=== PATIENT | female | born 1995 | race Two or more races ===

== ENCOUNTER 2018-08-17 09:45 | Emergency (ER) | payer MEDICAID ==
[~2018-08-17] VITALS: Ht 170.2 cm; Wt 106.6 kg
[~2018-08-17 09:45] MED LIST: IBUPROFEN600 MG ORAL; TRAMADOL HCL50 MG ORAL
--- NOTE | 2018-08-17 10:24 | Emergency Room Report ---
History of Present Illness General Chief Complaint: Laceration Source: Patient Present Illness HPI Patient presents with complaints of laceration to the base of the right thumb this happened yesterday At approximately 1:00 in the morning it was cut with a glass bottle Denies any foreign body remnants Pain is 2 out of 10 worse with touch or movement Denies any fevers or chills Patient is unknown regarding her last tetanus shot Allergies: Coded Allergies: No Known Allergies (Unverified , 09/13/16) Patient History Past Medical History: see triage record Pertinent Family History: none Last Menstrual Period: last month Now: No Reviewed Nursing Documentation: PMH: Agreed; PSxH: Agreed Nursing Documentation-PMH Past Medical History: No Stated History Review of Systems All Other Systems: negative except mentioned in HPI Physical Exam Vital Signs Date Time Temp Pulse Resp B/P (MAP) Pulse Ox O2 Delivery O2 Flow Rate FiO2 08/17/18 09:47 98.2 84 18 122/84 98 Room Air 98.2 Sp02 EP Interpretation: reviewed, normal General Appearance: well appearing, no apparent distress Head: normocephalic, atraumatic Eyes: bilateral eye PERRL, bilateral eye EOMI ENT: normal pharynx, no angioedema Neck: supple Respiratory: lungs clear Cardiovascular #1: regular rate, rhythm Musculoskeletal: normal inspection - Patient has full approximation of all digits able to flex thumb extend sensory is intact Neurologic: alert, oriented x3, responsive Skin: other - Approximately half centimeter laceration lateral aspect of the base of the right thumb, the Centerpoint of the laceration appears to breakthrough the dermis the 2 edges appear to be fairly superficial Lymphatic: no adenopathy Procedures Laceration/Wound Repair Laceration/Wound Repair : Consent: Verbal Wound Location: upper extremity Wound's Depth, Shape: into muscle Wound Length (cm): 1 Wound Explored: clean Irrigated w/ Saline (ccs): 100 Betadine Prep?: No Volume Anesthetic (ccs): 1 Wound Debrided: minimal Wound Repaired With: sutures Suture Size/Type: 5:0 Number of Sutures: 1 Layer Closure?: No Patient Tolerated: Well Complications: None Progress The 2 edges of the laceration are superficial, the mid point does break through the dermis and one suture was applied with appropriate approximation Medical Decision Making Diagnostic Impression: Primary Impression: Laceration ER Course Patient had laceration care as noted above Tolerated the procedure well and at this time is stable for close outpatient follow-up Last Vital Signs Date Time Temp Pulse Resp B/P (MAP) Pulse Ox O2 Delivery O2 Flow Rate FiO2 08/17/18 09:47 98.2 84 18 122/84 98 Room Air 98.2 Status: improved Disposition: HOME, SELF-CARE Condition: Improved Scripts Cephalexin* (KEFLEX*) 500 Mg Capsule 500 MG ORAL EVERY 6 HOURS for 5 Days, CAP Prov: Nadia Voss DO 08/17/18 Referrals: Hernando Go MD (PCP) Additional Instructions: Patient is provided with the discharge instructions notified to follow up with primary doctor in the next 2-3 days otherwise return to the er with any worsening symptoms. Please note that this report is being documented using [employer] technology. This can lead to erroneous entry secondary to incorrect interpretation by the dictating instrument. Nadia Voss DO Aug 17, 2018 10:24
[2018-08-17] MEDS ORDERED: Tetanus/Diptheria/Pertussis Vaccine 0.5ml Syr IM ONE (10:30)
[2018-08-17] MEDS ORDERED: LET 3ml Soln TOPIC ONE (10:30)
[2018-08-17] MEDS ORDERED: Bacitracin Oint UD TOPIC ONE ×2 (11:06→11:15)
[2018-08-17] MEDS ORDERED: CEPHALEXIN500 MG ORAL (11:10)
[2018-08-17 11:34] VITALS: BP 122/84
[2018-08-17 11:36] VITALS: BP 122/84
== END 2018-08-17 11:37 | disposition home or self-care (01) ==
LOC: EMR 10:08
DX: S61.011A Laceration without foreign body of right thumb without damage to nail, initial encounter (principal); Z23 Encounter for immunization; W25.XXXA Contact with sharp glass, initial encounter; Y93.9 Activity, unspecified; Y92.9 Unspecified place or not applicable; Y99.9 Unspecified external cause status
CPT/HCPCS: 90471; 90715; 99283